=== PATIENT | male | born 1995 | race Caucasian/White ===

== ENCOUNTER 2017-06-25 18:15 | Observation (INO) | payer MEDICAID ==
[2017-06-25] VITALS (8 sets, daily range): BP systolic 119–141; BP diastolic 61–89; PULSE 52–61; TEMP 97.8–98.6
[~2017-06-25] VITALS: Ht 170.2 cm; Wt 65.8 kg
[2017-06-25] MEDS ORDERED: PERCOCET 325 MG1 TA2 PO (21:20)
[2017-06-25] MEDS ORDERED: COLACE 100100 MG/CAP PO (21:21)
[2017-06-25] MEDS ORDERED: MOTRIN 600600 MG/TAB PO (21:21)
[2017-06-26 00:30] VITALS: BP 117/66; PULSE 56
[2017-06-26 01:30] VITALS: BP 126/57; PULSE 64
[2017-06-26 05:08] VITALS: BP 121/51; PULSE 66; TEMP 98.7
[2017-06-26 10:15] VITALS: BP 120/59; PULSE 53; TEMP 98.4
== END 2017-06-26 14:22 | disposition home or self-care (01) ==
LOC: SURG 18:15
DX: K35.80 Unspecified acute appendicitis (principal); R10.31 Right lower quadrant pain
CPT/HCPCS: G0378; J0744; J1100; J1885; J2405; J2704; J2710; J3010; J7120